=== PATIENT | male | born 1960 | race Caucasian/White ===

== ENCOUNTER → 2016-11-15 | Outpatient (CLI) | payer BC | LOC: COL.RAD 10:06 | DX: M76.12 Psoas tendinitis, left hip (principal); Z96.642 Presence of left artificial hip joint | CPT/HCPCS: J3301; Q9967 ==

== ENCOUNTER → 2016-12-05 | Outpatient (CLI) | payer BC | LOC: COL.RAD 07:58 | DX: M25.552 Pain in left hip (principal); M79.652 Pain in left thigh; Z96.652 Presence of left artificial knee joint | CPT/HCPCS: J3301; Q9967 ==

== ENCOUNTER → 2023-01-16 | Outpatient (CLI) | payer BC | LOC: COL.RAD 12:07 | DX: M47.812 Spondylosis without myelopathy or radiculopathy, cervical region (principal); M48.02 Spinal stenosis, cervical region | CPT/HCPCS: A9575 ==

== ENCOUNTER → 2023-03-12 | Outpatient (CLI) | payer BC ==
[~2023-03-12] MED LIST: AMITRIPTYLINE H10 M1 PO; IRON TABLETS325 MG PO; MOBIC15 MG PO; NEURONTIN300 MG/CAP PO; PRILOSEC 20MG20 MG PO; PRINZIDE 12.5 M1 TA1 PO; REQUIP 1MG T1 MG/TAB PO; ZOLOFT 100MG100 MG PO
== END ==
LOC: COL.RAD 11:15
DX: G93.89 Other specified disorders of brain (principal); R29.2 Abnormal reflex
CPT/HCPCS: A9575